=== PATIENT | male | born 1985 | race Caucasian/White ===

== ENCOUNTER 2021-09-15 09:27 | Emergency (ER) | payer OTHER ==
[~2021-09-15] VITALS: Ht 167.6 cm; Wt 70.0 kg
[2021-09-15] MEDS ORDERED: ACETAMINOPHEN 500MG TABLET PO ONE (10:30)
[2021-09-15] MEDS ORDERED: IBUP-2029 MT (11:51)
[2021-09-15 12:04] VITALS: BP 127/85
== END 2021-09-15 12:05 ==
LOC: ER 09:42
DX: S00.83XA Contusion of other part of head, initial encounter (principal); S02.85XA Fracture of orbit, unspecified, initial encounter for closed fracture; Y08.89XA Assault by other specified means, initial encounter; Y93.89 Activity, other specified; Y92.89 Other specified places as the place of occurrence of the external cause; Y99.8 Other external cause status
CPT/HCPCS: 70486; 71111; 99284